=== PATIENT | female | born 1965 | race Caucasian/White ===

== ENCOUNTER → 2019-10-14 16:20 | Outpatient (BNVA) | payer OTHER, SELFPAY | PROVIDERS: Family Provider Internal Medicine; PCP Internal Medicine; Visit Provider Nurse Practitioner | DX: R05 Cough (principal); J45.909 Unspecified asthma, uncomplicated; J20.8 Acute bronchitis due to other specified organisms | CPT/HCPCS: 87804 ==

== ENCOUNTER 2020-09-13 08:00 | Outpatient (CLI) | payer OTHER, SELFPAY ==
--- NOTE | 2020-09-13 08:00 | MM_ITS ---
WS: [id number] SCREENING DIGITAL MAMMOGRAM WITH CAD HISTORY: Z12.39 - Encounter for other screening for malignant neoplasm of breast COMPARISON: 06/29/2019 and 06/16/2018 Bilateral CC and MLO views submitted. Computer aided detection analyzed. Breast composition: The breasts are heterogeneously dense, which may obscure small masses. Developing cluster of calcifications noted in the RIGHT breast at a posterior depth just medial to th e nipple. This is near the 9:00 axis. LEFT breast is negative. There is a calcification which has bee n present on prior studies and not changed. MM/[place] [id number] IMPRESSION: BI-RADS: 0-Incomplete: Need additional imaging evaluation FOLLOW UP: Need Additional Imaging RIGHT BREAST: Magnification views of suspicious calcification CC and MLO. True ML.
== END 2020-09-13 08:01 | disposition home or self-care (01) ==
LOC: RADSHAW 08:02
PROVIDERS: PCP Internal Medicine; Visit Provider Internal Medicine
DX: Z12.31 Encounter for screening mammogram for malignant neoplasm of breast (principal); R92.1 Mammographic calcification found on diagnostic imaging of breast
CPT/HCPCS: 77067

== ENCOUNTER 2020-09-14 09:48 | Outpatient (CLI) | payer OTHER, SELFPAY ==
--- NOTE | 2020-09-14 09:53 | MM_ITS ---
WS: [id number] ADDITIONAL VIEWS RIGHT BREAST HISTORY: RIGHT BREAST CALCIFICATIONS COMPARISON: 09/13/2020 06/29/2019 and 06/16/2018 Magnification views right CC and MLO projection. True ML also submitted. There are several calcifications in the posterior RIGHT breast near the nipple line. Some of these ca lcifications are just medial to the nipple line. On the magnification views these appear rounded and not spiculated or irregular. There are only a few calcifications clustered together. MM/[place] [id number] IMPRESSION: BI-RADS: 3-Probably Benign FOLLOW-UP: 6 Month Follow-up Recommend diagnostic follow-up in 6 months. Several benign features of these ca lcifications. As these calcifications are new suggest 6 month follow-up to docu ment continued progression or stability.
== END 2020-09-14 09:49 | disposition home or self-care (01) ==
LOC: RADSHAW 09:49
PROVIDERS: PCP Internal Medicine; Visit Provider Internal Medicine
DX: R92.1 Mammographic calcification found on diagnostic imaging of breast (principal)
CPT/HCPCS: 77065

== ENCOUNTER 2021-02-04 14:38 | Outpatient (CLI) | payer OTHER, SELFPAY ==
--- NOTE | 2021-02-04 14:43 | XR_ITS ---
WS: [id number] SHOULDER LEFT TECHNIQUE: 3 views of the left shoulder CLINICAL INFORMATION: Left shoulder COMPARISON: None. FINDINGS: Moderate degenerative arthritis AC joint with slight hypertrophic spurring. Mild downsloping acromion . Moderate narrowing of the subacromial space. Moderate degenerative arthritis at the glenohumeral perlita int with hypertrophic spurring. Large hypertrophic spur along the inferior medial humeral neck. Left lung is well aerated. XR/XR shoulder LT min 2V* [id number] IMPRESSION: 1. Moderate degenerative arthritis AC joint glenohumeral joint with hypertroph ic spurring. 2. Large protuberant hypertrophic spur along the inferior medial humeral neck 3. Moderate rotator cuff arthropathy.
== END 2021-02-04 14:39 | disposition home or self-care (01) ==
PROVIDERS: PCP Internal Medicine; Visit Provider Nurse Practitioner Family
DX: M25.512 Pain in left shoulder (principal); M19.012 Primary osteoarthritis, left shoulder
CPT/HCPCS: 73030

== ENCOUNTER 2021-02-27 14:44 | Outpatient (CLI) | payer OTHER, SELFPAY ==
--- NOTE | 2021-02-27 16:00 | MR_ITS ---
WS: [id number] MRI LEFT SHOULDER NONCONTRAST TECHNIQUE: Sagittal T2, coronal T1, T2 and proton density imaging. Axial gradient PDE imaging. CLINICAL INFORMATION: M19.012 - Primary osteoarthritis, left shoulder COMPARISON: Radiograph February 04, 2021 FINDINGS: Moderate degenerative arthritis at the AC joint with mild downsloping acromion. Subacromial spurring. Narrowing of the subacromial space with impingement on the distal supraspinatus tendon at the insert ion. Tendinopathy with thinning of the distal supraspinatus. Small amount of subacromial/subdeltoid f luid. Infraspinatus is intact with tendinopathy distally. Normal teres minor. Normal subscapularis. N ormal biceps tendon in the bicipital groove. Loose bodies within the subcoracoid bursa. Largest loose body measures 9 mm. Advanced degenerative arthritis at the glenohumeral joint with joint space narrowing. Prominent hyper trophic spurring along the inferior medial humeral head with narrowing of the joint space. Prominent hypertrophic spur measures 11 mm with narrowing of the glenohumeral joint and advanced degenerative f raying of the glenoid labrum. Biceps labral anchor appears intact with diminutive intra-articular bic eps tendon. Intra-articular biceps tendon appears intact. T2 hyperintensity with subchondral cystic c hanges involving the humeral head. No evidence of avascular necrosis. Evidence of prior postoperative changes involving the rotator cuff insertion. MR/MR shoulder LT wo con* [id number] IMPRESSION: 1. Moderate degenerative arthritis at the AC joint with moderate downsloping a cromion. 2. Subacromial spurring with narrowing of the subacromial space. Impingement o n the distal supraspinatus tendon with tendinopathy and Chronic thinning. 3. Tendinopathy distal infraspinatus. 4. Subscapularis and teres minor are intact. 5. Biceps tendon is intact within the bicipital groove. Somewhat diminutive in tra-articular biceps tendon. 6. Advanced degenerative narrowing at the glenohumeral joint with prominent ca udally directed hypertrophic bone spur along the medial humeral head. 7. Advanced degenerative fraying of the glenoid labrum. Biceps labral anchor a ppears intact. 8. Subchondral cystic changes with edema involving the humeral head. No eviden ce of avascular necrosis. 9. Calcified loose bodies within the subcoracoid bursa. Largest loose body debra sures 9 mm.
== END 2021-02-27 14:45 | disposition home or self-care (01) ==
PROVIDERS: PCP Internal Medicine; Visit Provider Orthopaedic Surgery
DX: M19.012 Primary osteoarthritis, left shoulder (principal)
CPT/HCPCS: 73221

== ENCOUNTER 2021-03-19 11:12 | Outpatient (CLI) | payer OTHER, SELFPAY ==
--- NOTE | 2021-03-19 11:22 | MM_ITS ---
WS: [id number] DIAGNOSTIC RIGHT DIGITAL MAMMOGRAM WITH CAD HISTORY: R92.1 - Mammographic calcification found on diagnostic mammogram. COMPARISON: 09/14/2020, 09/13/2020 Technique: CC, MLO and ML views. Magnification views RIGHT CC and MLO. Breast composition: There are scattered areas of fibroglandular density. Cluster of calcifications c entral to the nipple posteriorly remain unchanged. There are a few small calcifications. No increase in size or number of these calcifications. Recommend continued close follow-up. MM/[place] [id number] IMPRESSION: BI-RADS: 3-Probably Benign FOLLOW UP: 6 Month Follow-up Patient to return in August 2021 for annual mammogram. Additional magnificatio n views of the RIGHT breast calcifications should be performed at that time to document long-term stability.
== END 2021-03-19 11:13 | disposition home or self-care (01) ==
PROVIDERS: PCP Internal Medicine; Visit Provider Internal Medicine
DX: R92.1 Mammographic calcification found on diagnostic imaging of breast (principal)
CPT/HCPCS: 77065

== ENCOUNTER → 2021-03-27 17:13 | Outpatient (BNVA) | payer OTHER, SELFPAY | PROVIDERS: PCP Internal Medicine; Visit Provider Registered Nurse Neonatal Intensive Care | DX: M79.662 Pain in left lower leg (principal) | CPT/HCPCS: 73590 ==

== ENCOUNTER 2021-07-18 08:42 | Outpatient (RCR) | payer OTHER, SELFPAY | END 2021-08-16 23:59 | disposition home or self-care (01) | LOC: SPT 08:42 | PROVIDERS: PCP Internal Medicine; Referring Provider Physician Assistant Surgical; Visit Provider Physician Assistant Surgical | DX: Z96.612 Presence of left artificial shoulder joint (principal) | CPT/HCPCS: 97110; 97161 ==

== ENCOUNTER 2021-08-17 06:00 | Outpatient (RCR) | payer OTHER, SELFPAY | END 2021-09-16 23:59 | disposition home or self-care (01) | LOC: SPT 06:00 | PROVIDERS: PCP Internal Medicine; Referring Provider Physician Assistant Surgical; Visit Provider Physician Assistant Surgical | DX: Z47.1 Aftercare following joint replacement surgery (principal); Z96.612 Presence of left artificial shoulder joint | CPT/HCPCS: 97110 ==

== ENCOUNTER 2021-09-17 06:00 | Outpatient (RCR) | payer OTHER, SELFPAY | END 2021-10-14 23:59 | disposition home or self-care (01) | LOC: SPT 06:00 | PROVIDERS: PCP Internal Medicine; Referring Provider Physician Assistant Surgical; Visit Provider Physician Assistant Surgical | DX: Z47.1 Aftercare following joint replacement surgery (principal); Z96.612 Presence of left artificial shoulder joint | CPT/HCPCS: 97110 ==

== ENCOUNTER 2021-10-11 11:52 | Outpatient (CLI) | payer OTHER, SELFPAY ==
--- NOTE | 2021-10-11 11:55 | MM_ITS ---
WS: [id number] DIAGNOSTIC BILATERAL DIGITAL MAMMOGRAM WITH CAD HISTORY: RIGHT breast calcifications. COMPARISON: 09/14/2020, 03/19/2021, 09/13/2020, 06/29/2019 TECHNIQUE: Bilateral craniocaudad, mediolateral oblique, and mediolateral views are submitted. Magnif ication views RIGHT CC and MLO. Computer aided detection utilized. Breast composition: The breasts are heterogeneously dense, which may obscure small masses. Stable rishabh earance to the calcifications in the posterior RIGHT breast near the nipple line. There are 2-3 very small punctate calcifications which are stable and not increased since 09/13/2020. No distortion. No s oft tissue masses. MM/[place] [id number] IMPRESSION: BI-RADS: 3-Probably Benign FOLLOW UP: 6 Month Follow-up Diagnostic mammogram RIGHT breast with magnification views of the calcification s. 6 month follow-up necessary to determine long-term stability of the calcific ations in the RIGHT breast.
== END 2021-10-11 11:53 | disposition home or self-care (01) ==
LOC: RADSHAW 11:53
PROVIDERS: PCP Internal Medicine; Visit Provider Internal Medicine
DX: R92.1 Mammographic calcification found on diagnostic imaging of breast (principal)
CPT/HCPCS: 77066

== ENCOUNTER 2022-04-09 07:50 | Outpatient (CLI) | payer OTHER, SELFPAY ==
--- NOTE | 2022-04-09 07:54 | MM_ITS ---
WS: [id number] DIAGNOSTIC RIGHT DIGITAL TOMOSYNTHESIS MAMMOGRAPHY WITH CAD. HISTORY: 6 MO F/U MICROCALCIFICATIONS COMPARISON: 10/11/2021 and 03/19/2021 and 09/14/2020 Technique: CC, MLO and ML views. Magnification views. Breast composition: The breasts are heterogeneously dense, which may obscure small masses. Calcifica tions in the central RIGHT breast remain stable. No increase in size or number of these calcification s. No additional abnormality. MM/[place] [id number] IMPRESSION: BI-RADS: 3-Probably Benign FOLLOW UP: 6 Month Follow-up Patient to return in 6 months for annual mammogram. Magnification views of thes e calcifications should be performed at that time also. Long-term documentation for stability is necessary.
--- NOTE | 2022-04-09 17:00 | MR_ITS ---
WS: [id number] MRI CERVICAL SPINE NONCONTRAST TECHNIQUE: Sagittal T1, T2 and STIR imaging. Axial T2, gradient, and fiesta imaging. CLINICAL INFORMATION: Left hand numbness COMPARISON: CT December 21, 2010. FINDINGS: Straightening of the normal cervical lordosis. Cord signal is normal. No high-grade central canal nneka nosis. Mild to moderate central canal stenosis C5-C6 with LEFT pericentral disc osteophyte protrusion and slight indentation on the cervical cord. Small amount of central T2 signal abnormality in the c ord at this level. C2-C3: Normal. C3-C4: No significant disc bulging. Mild facet arthropathy. Mild LEFT and no significant RIGHT forami nal narrowing. Mild facet arthropathy. Spinal canal is patent. C4-C5: No significant disc bulging. Mild facet arthropathy. Spinal canal and foramen are patent. C5-C6: Disc osteophyte complex with endplate ridging. LEFT pericentral disc osteophyte protrusion wit h indentation on the LEFT ventral cervical cord with mild flattening. Mild to moderate central canal stenosis. Moderate bilateral bony foraminal narrowing. Moderate facet arthropathy with uncovertebral joint hypertrophy. Small amount of T2 signal abnormality in the central cord. C6-C7: Disc osteophyte complex with endplate ridging. Mild facet arthropathy. Moderate LEFT and mild RIGHT bony foraminal narrowing. Spinal canal is patent. C7-T1: No significant disc bulging. Spinal canal and foramen are patent. Small shallow central protrusion upper thoracic spine T3-4 with slight contact of the thoracic cord. Visualized brain stem structures: Normal. Prevertebral soft tissues: Normal. MR/MR cervical spin wo con* [id number] IMPRESSION: 1. Straightening of the normal cervical lordosis. Disc bulging worse at C5-C6 and C6-C7. 2. Disc osteophyte complex with a LEFT pericentral disc osteophyte protrusion. Indentation LEFT ventral cervical cord with mild to moderate central canal nneka nosis. Small amount of T2 signal abnormality in the cord at this level. 3. Moderate bilateral C5-C6 and LEFT C6-C7 bony foraminal narrowing. 4. Mild to moderate facet arthropathy worse at C5-C6. 5. Small shallow central protrusion upper thoracic spine T3-4 with slight cont act of the thoracic cord.
== END 2022-04-09 07:51 | disposition home or self-care (01) ==
PROVIDERS: PCP Internal Medicine; Visit Provider Internal Medicine
DX: G56.20 Lesion of ulnar nerve, unspecified upper limb (principal); R92.0 Mammographic microcalcification found on diagnostic imaging of breast; R20.0 Anesthesia of skin; M50.222 Other cervical disc displacement at C5-C6 level; M25.78 Osteophyte, vertebrae; M47.812 Spondylosis without myelopathy or radiculopathy, cervical region; M51.24 Other intervertebral disc displacement, thoracic region
CPT/HCPCS: 72141; 77061

== ENCOUNTER 2022-09-17 06:00 | Outpatient (RCR) | payer OTHER, SELFPAY | END 2022-10-14 23:59 | disposition home or self-care (01) | LOC: SOT 06:00 | PROVIDERS: PCP Internal Medicine; Visit Provider Orthopaedic Surgery | DX: G56.22 Lesion of ulnar nerve, left upper limb (principal); G56.02 Carpal tunnel syndrome, left upper limb | CPT/HCPCS: 97110; 97166 ==

== ENCOUNTER 2022-10-15 06:00 | Outpatient (RCR) | payer OTHER, SELFPAY | END 2022-11-12 23:59 | disposition home or self-care (01) | LOC: SOT 06:00 | PROVIDERS: PCP Internal Medicine; Visit Provider Orthopaedic Surgery | DX: G56.22 Lesion of ulnar nerve, left upper limb (principal); G56.02 Carpal tunnel syndrome, left upper limb | CPT/HCPCS: 97018; 97022; 97110; 97140 ==

== ENCOUNTER 2022-10-21 06:38 | Outpatient (CLI) | payer OTHER, SELFPAY ==
--- NOTE | 2022-10-21 10:06 | MM_ITS ---
WS: [id number] DIAGNOSTIC BILATERAL DIGITAL BREAST TOMOSYNTHESIS MAMMOGRAPHY WITH CAD HISTORY: Follow-up calcifications. COMPARISON: 04/09/2022, 10/11/2021, 03/19/2021, 09/13/2020, 06/29/2019 and 06/16/2018 TECHNIQUE: Bilateral craniocaudad, mediolateral oblique, and mediolateral views are submitted with to mosynthesis and SM. Magnification views RIGHT CC and MLO. Computer aided detection utilized. Breast composition: The breasts are heterogeneously dense, which may obscure small masses. Small clus ter of calcifications in the posterior RIGHT breast central to the nipple are unchanged. No increase in the size or number of these calcifications. No new calcifications. LEFT breast is negative. MM/[place] [id number] IMPRESSION: BI-RADS: 2-Benign FOLLOW UP: 1 Year Follow-up Return to annual screening mammography.
== END 2022-10-21 06:39 | disposition home or self-care (01) ==
LOC: RAD 06:39
PROVIDERS: PCP Internal Medicine; Visit Provider Family Medicine
DX: R92.0 Mammographic microcalcification found on diagnostic imaging of breast (principal)
CPT/HCPCS: 77062; G0279

== ENCOUNTER 2023-10-23 10:51 | Outpatient (CLI) | payer OTHER, SELFPAY ==
--- NOTE | 2023-10-23 11:00 | MM_ITS ---
WS: [id number] BILATERAL SCREENING DIGITAL TOMOSYNTHESIS MAMMOGRAM WITH CAD HISTORY: breast cancer screening COMPARISON: 10/21/2022, 04/09/2022 and 09/13/2020 Bilateral CC and MLO views with tomosynthesis and synthetic mammography submitted. Computer aided det ection analyzed. Breast composition: The breasts are heterogeneously dense, which may obscure small masses. No suspici ous masses, microcalcifications or architectural distortion. Reidentified is a calcifications in the central RIGHT breast which have not changed significantly. IMPRESSION: MM/[place] [id number] BI-RADS: 2-Benign FOLLOW UP: 1 Year Follow-up
== END 2023-10-23 10:52 | disposition home or self-care (01) ==
LOC: RAD 10:51
PROVIDERS: PCP Family Medicine; Visit Provider Family Medicine
DX: Z12.31 Encounter for screening mammogram for malignant neoplasm of breast (principal)
CPT/HCPCS: 77063; 77067

== ENCOUNTER 2024-01-01 12:09 | Outpatient (CLI) | payer OTHER, SELFPAY ==
--- NOTE | 2024-01-01 12:30 | MR_ITS ---
WS: [id number] MRI RIGHT SHOULDER NONCONTRAST TECHNIQUE: Sagittal T2, coronal T1, T2 and proton density imaging. Axial gradient PDE imaging. CLINICAL INFORMATION: concern for rotator cuff tear after acute injury COMPARISON: MRI arthrogram 2013 FINDINGS: Advanced degenerative AC joint with fluid and edema. Moderate downsloping the acromion with impingeme nt of the distal supraspinatus. AC joint arthritis is progressed compared to previous. Narrowing of t he subacromial space. Chronic diffuse thinning of the supraspinatus distally with tendinopathy and a tiny bursal surface tear deep to the acromial spurring. Tiny supraspinatus insertional tear. No tendo n retraction. Normal infraspinatus. Diffuse edema with fluid surrounding the teres minor with a small undersurface tear along the distal tendon insertion with tendinopathy. No tendon retraction. Recommend correlation for acute injury. Advanced degenerative narrowing of the glenohumeral articulation with [id number] articulation. Prom inent hypertrophic spurring along the medial humeral neck. Hypertrophic spur measures approximately 1 .2 cm with inferior projection. Hypertrophic changes bony glenoid with subchondral cystic change. Deg enerative fraying of the glenoid labrum. Subscapularis tendon appears normal. Biceps tendon intact within the bicipital groove. Biceps labral anchor appears intact. Intra-articular biceps tendon appears intact. Mild soft tissue edema about the shoulder. Small joint effusion. MR/MR shoulder RT wo con* [id number] IMPRESSION: 1. Advanced degenerative arthritis of the AC joint with subacromial spurring a nd narrowing of the subacromial space progressed compared to previous. Impingem ent distal supraspinatus. 2. Chronic thinning of the distal supraspinatus with a small bursal surface te ar deep to the acromion. Tendinopathy distal supraspinatus with a tiny insertio nal tear. 3. Diffuse edema involving the teres minor muscle belly extending to the dista l tendon with a tiny undersurface tear at the teres minor insertion with tendin opathy. No tendon retraction. Recommend correlation for acute injury. 4. Advanced degenerative narrowing glenohumeral articulation with hypertrophic spurring along the humeral neck. [id number] articulation. 5. Subchondral cystic change and hypertrophic spurring involving the bony nancy oid. 6. Biceps tendon appears intact within the bicipital groove. Intra-articular b iceps tendon appears intact.
== END 2024-01-01 12:10 | disposition home or self-care (01) ==
LOC: RAD 12:09
PROVIDERS: PCP Family Medicine; Visit Provider Family Medicine
DX: S49.91XA Unspecified injury of right shoulder and upper arm, initial encounter (principal); M19.011 Primary osteoarthritis, right shoulder; M25.712 Osteophyte, left shoulder; M75.91 Shoulder lesion, unspecified, right shoulder; M67.813 Other specified disorders of tendon, right shoulder; M85.60 Other cyst of bone, unspecified site
CPT/HCPCS: 73221

== ENCOUNTER 2024-04-07 09:28 | Outpatient (RCR) | payer OTHER, SELFPAY | END 2024-04-16 18:00 | disposition home or self-care (01) | LOC: SPT 09:28 | PROVIDERS: PCP Family Medicine; Visit Provider Nurse Practitioner Family | DX: Z47.1 Aftercare following joint replacement surgery (principal); Z96.611 Presence of right artificial shoulder joint | CPT/HCPCS: 97110; 97161 ==

== ENCOUNTER 2024-04-17 06:37 | Outpatient (RCR) | payer OTHER, SELFPAY | END 2024-05-16 23:59 | disposition home or self-care (01) | LOC: SPT 06:37 | PROVIDERS: PCP Family Medicine; Visit Provider Nurse Practitioner Family | DX: Z47.1 Aftercare following joint replacement surgery (principal); Z96.611 Presence of right artificial shoulder joint | CPT/HCPCS: 97110 ==

== ENCOUNTER 2024-05-17 06:00 | Outpatient (RCR) | payer OTHER, SELFPAY | END 2024-06-16 23:59 | disposition home or self-care (01) | LOC: SPT 06:00 | PROVIDERS: PCP Family Medicine; Visit Provider Nurse Practitioner Family | DX: Z47.1 Aftercare following joint replacement surgery (principal); Z96.611 Presence of right artificial shoulder joint | CPT/HCPCS: 97110 ==

== ENCOUNTER → 2024-05-25 12:02 | Outpatient (BNVA) | payer OTHER, SELFPAY | PROVIDERS: PCP Family Medicine; Visit Provider Family Medicine | DX: Z01.419 Encounter for gynecological examination (general) (routine) without abnormal findings (principal) | CPT/HCPCS: 87624 ==

== ENCOUNTER 2024-10-26 07:48 | Outpatient (CLI) | payer OTHER, SELFPAY ==
--- NOTE | 2024-10-26 08:20 | MM_ITS ---
WS: [id number] BILATERAL SCREENING DIGITAL TOMOSYNTHESIS MAMMOGRAM WITH CAD HISTORY: breast cancer screening COMPARISON: 10/23/2023, 10/21/2022 and 04/09/2022 Bilateral CC and MLO views with tomosynthesis and synthetic mammography submitted. Computer aided detection analyzed. Breast composition: The breasts are heterogeneously dense, which may obscure small masses. No suspicious masses, microcalcifications or architectural distortion. Benign calcifications central RIGHT breast. MM/MM scr BI tomosynthesis [id number] IMPRESSION: BI-RADS: 2 - Benign FOLLOW UP: 1 Year Follow-up
== END 2024-10-26 07:49 | disposition home or self-care (01) ==
LOC: RAD 07:49
PROVIDERS: PCP Family Medicine; Visit Provider Family Medicine
DX: Z12.31 Encounter for screening mammogram for malignant neoplasm of breast (principal); R92.333 Mammographic heterogeneous density, bilateral breasts; R92.1 Mammographic calcification found on diagnostic imaging of breast
CPT/HCPCS: 77063; 77067